=== PATIENT | male | born 1950 | race Caucasian/White ===

== ENCOUNTER 2021-08-20 10:12 | Emergency (ER) | payer MEDICARE, BC ==
[~2021-08-20] VITALS: Ht 175.3 cm; Wt 99.3 kg
[2021-08-20 11:58] LABS: BASO % 0.4 % (0.0-1.0); EOS % 0.2 % (0.0-3.0); HEMATOCRIT 49.5 % (42.0-52.0); HEMOGLOBIN 16.8 g/dl (13.5-17.5); LYMPH # 1.3 10^3/uL (1.5-5.0); MEAN CORPUSCULAR HGB CONC 33.9 g/dl (32.0-36.5); MEAN CORPUSCULAR VOLUME 91.3 fl (80.0-96.0); MONO # 1.2 10^3/uL (0.0-0.8); MONO % 15.2 % (2.0-8.0); NEUTROPHILS # 5.5 10^3/uL (1.5-8.5); NEUTROPHILS % 67.7 % (36.0-66.0); PLATELET COUNT, AUTOMATED 101 10^3/uL (150-450); RED BLOOD COUNT 5.42 10^6/uL (4.30-6.10); WHITE BLOOD COUNT 8.1 10^3/uL (4.0-10.0)
[2021-08-20 12:06] LABS: INR 1.42; PROTHROMBIN TIME 17.8 SECONDS (12.7-14.5)
[2021-08-20 12:07] LABS: PARTIAL THROMBOPLASTIN TIME 35.2 SECONDS (25.9-37.0)
[2021-08-20 12:22] LABS: ALBUMIN 3.6 GM/DL (3.2-5.2); BILIRUBIN,DIRECT 0.4 MG/DL (0.0-0.2); BILIRUBIN,TOTAL 1.6 MG/DL (0.2-1.0); TOTAL PROTEIN 6.7 GM/DL (6.4-8.2)
[2021-08-20] MEDS ORDERED: ISOVUE-370 76% 100ML VIAL As Ordered ONE (12:31)
[2021-08-20 14:09] VITALS: BP 127/77
== END 2021-08-20 14:11 | disposition home or self-care (01) ==
LOC: M ED 10:12
DX: K92.2 Gastrointestinal hemorrhage, unspecified (principal); R05.9 Cough, unspecified; R09.81 Nasal congestion; K59.00 Constipation, unspecified; I48.91 Unspecified atrial fibrillation; I10 Essential (primary) hypertension; K64.9 Unspecified hemorrhoids; Z95.0 Presence of cardiac pacemaker
CPT/HCPCS: 36415; 74177; 80047; 80076; 85025; 85610; 85730; 86850; 86900; 86901; 99284; Q9967